=== PATIENT | male | born 1950 | race Caucasian/White ===

== ENCOUNTER 2023-03-24 16:00 | Emergency (ER) | payer MEDICARE, OTHER ==
[~2023-03-24] VITALS: Ht 172.7 cm; Wt 78.0 kg
[2023-03-24] MEDS ORDERED: AMOX-430 PO (17:08)
[2023-03-24 17:54] VITALS: BP 135/78; TEMP 98.2; O2SAT 97
== END 2023-03-24 17:55 | disposition home or self-care (01) ==
LOC: ER 16:00
DX: J01.10 Acute frontal sinusitis, unspecified (principal)
CPT/HCPCS: 70450; A4606; A4663

== ENCOUNTER 2023-05-12 14:03 | Emergency (ER) | payer MEDICARE, OTHER ==
[~2023-05-12] VITALS: Ht 172.7 cm; Wt 78.0 kg
[~2023-05-12 14:03] MED LIST: AMOX-430 PO
[2023-05-12 15:15] LABS: BASOPHILS # (AUTO) 0.1 K/UL (0.0-0.2); BASOPHILS % (AUTO) 2.9 % (0.0-2.0); EOSINOPHILS # (AUTO) 0.1 K/uL (0.0-0.7); EOSINOPHILS % (AUTO) 2.3 % (0.0-7.0); HEMATOCRIT 45.1 % (36.7-47.1); LYMPHOCYTES # (AUTO) 0.6 K/uL (0.8-4.8); LYMPHOCYTES % (AUTO) 13.5 % (20.5-51.5); MEAN CORPUSCULAR HEMOGLOBIN 30.8 uug (23.8-33.4); MEAN CORPUSCULAR HGB CONC 33 g/dL (32.5-36.3); MEAN CORPUSCULAR VOLUME 92.5 fL (73.0-96.2); MONOCYTES # (AUTO) 0.5 K/uL (0.1-1.30); MONOCYTES % (AUTO) 10.8 % (0.0-11.0); NEUTROPHILS # (AUTO) 3.2 K/uL (1.8-8.9); NEUTROPHILS % (AUTO) 70.5 % (38.5-71.5); PLATELET COUNT (AUTO) 202 K/uL (152-348); RED BLOOD CELL COUNT(AUTO) 4.88 MIL/uL (4.06-5.63); RED CELL DISTRIBUTION WIDTH 13.9 % (12.1-16.2); WHITE BLOOD COUNT (AUTO) 4.5 K/uL (3.6-10.2)
[2023-05-12 15:20] LABS: CARBON DIOXIDE 27 mmol/L (21-32); CHLORIDE 101 mmol/L (98-107); CREATININE 0.9 mg/dL (0.6-1.3); GLUCOSE 102 mg/dL (74-106); POTASSIUM 4.1 mmol/L (3.5-5.1); SODIUM SERUM 137 mmol/L (136-145); UREA NITROGEN, BLOOD 13 mg/dL (7-18)
[2023-05-12 15:21] LABS: DIFFERENTIAL COMMENT 1
[2023-05-12] MEDS ORDERED: AMLODIPINE 5 MG TABLET PO ONE (15:30)
[2023-05-12 15:33] LABS: ALANINE AMINOTRANSFERASE 26 U/L (16-63); ALBUMIN 3.7 g/dL (3.4-5.0); ALKALINE PHOSPHATASE 108 U/L (50-136); ASPARTATE AMINOTRANSFERASE 18 U/L (15-37); BILIRUBIN,DIRECT 0.1 mg/dL (0.0-0.2); BILIRUBIN,TOTAL 0.4 mg/dL (0.2-1.0); NT-PRO BNP 33 pg/mL (0-125); TOTAL PROTEIN, SERUM 7.8 g/dL (6.4-8.2)
[2023-05-12] MEDS ORDERED: AMLODIPINE 5 MG TABLET ONE (15:54)
[2023-05-12] MEDS ORDERED: VALS40TA4 PO (17:23)
[2023-05-12] MEDS ORDERED: VALS160T2 PO (17:23)
[2023-05-12] MEDS ORDERED: AMLO-212 PO (17:23)
[2023-05-12] MEDS ORDERED: FLUT1BLS6 IH (17:27)
[2023-05-12 17:35] VITALS: BP 186/94; O2SAT 100
== END 2023-05-12 17:35 | disposition home or self-care (01) ==
LOC: ER 14:03
DX: R07.89 Other chest pain (principal); I10 Essential (primary) hypertension; J44.9 Chronic obstructive pulmonary disease, unspecified; Z79.899 Other long term (current) drug therapy
CPT/HCPCS: 36415; 71045; 84484; 85025; 93005; A4606; A4663

== ENCOUNTER 2024-08-14 18:03 | Emergency (ER) | payer MEDICARE, OTHER ==
[~2024-08-14] VITALS: Ht 170.2 cm; Wt 83.5 kg
[~2024-08-14 18:03] MED LIST changes: +AMLO-212 PO; +FLUT1BLS6 IH; +VALS160T2 PO; +VALS40TA4 PO
[2024-08-14] MEDS ORDERED: ASPIRIN 81 MG TAB.CHEW ONE (18:53)
[2024-08-14] MEDS: ASPIRIN 81 MG TAB.CHEW PO ONE (18:53)
[2024-08-14 18:57] LABS: BASOPHILS # (AUTO) 0.1 K/UL (0.0-0.2); BASOPHILS % (AUTO) 0.5 % (0.0-2.0); EOSINOPHILS # (AUTO) 0.1 K/uL (0.0-0.7); EOSINOPHILS % (AUTO) 1.2 % (0.0-7.0); HEMATOCRIT 43.1 % (36.7-47.1); HEMOGLOBIN 14.6 g/dL (12.5-16.3); LYMPHOCYTES # (AUTO) 1.3 K/uL (0.8-4.8); LYMPHOCYTES % (AUTO) 11.4 % (20.5-51.5); MEAN CORPUSCULAR HEMOGLOBIN 31.2 uug (23.8-33.4); MEAN CORPUSCULAR HGB CONC 34 g/dL (32.5-36.3); MEAN CORPUSCULAR VOLUME 91.8 fL (73.0-96.2); MONOCYTES # (AUTO) 0.9 K/uL (0.1-1.30); MONOCYTES % (AUTO) 8.2 % (0.0-11.0); NEUTROPHILS % (AUTO) 78.7 % (38.5-71.5); PLATELET COUNT (AUTO) 245 K/uL (152-348); RED BLOOD CELL COUNT(AUTO) 4.69 MIL/uL (4.06-5.63); RED CELL DISTRIBUTION WIDTH 13.7 % (12.1-16.2); WHITE BLOOD COUNT (AUTO) 11.4 K/uL (3.6-10.2)
[2024-08-14 19:03] LABS: DIFFERENTIAL COMMENT 1
[2024-08-14 19:10] LABS: CALCIUM 8.9 mg/dL (8.5-10.1); CARBON DIOXIDE 24 mmol/L (21-32); CHLORIDE 105 mmol/L (98-107); GLUCOSE 118 mg/dL (74-106); POTASSIUM 3.8 mmol/L (3.5-5.1); SODIUM SERUM 141 mmol/L (136-145); UREA NITROGEN, BLOOD 14 mg/dL (7-18)
[2024-08-14] MEDS: levoFLOXacin 750 MG/D5W 150 ML PIGGYBACK IV ONE (19:15)
[2024-08-14] MEDS: GUAIFENESIN/CODEINE 5 ML LIQUID UDC PO ONE (19:15)
[2024-08-14 19:24] LABS: ALANINE AMINOTRANSFERASE 19 U/L (16-63); ALBUMIN 3.2 g/dL (3.4-5.0); ALKALINE PHOSPHATASE 109 U/L (50-136); ASPARTATE AMINOTRANSFERASE 10 U/L (15-37); BILIRUBIN,DIRECT 0.2 mg/dL (0.0-0.2); BILIRUBIN,TOTAL 0.4 mg/dL (0.2-1.0); NT-PRO BNP 102 pg/mL (0-125); TOTAL PROTEIN, SERUM 7.3 g/dL (6.4-8.2)
[2024-08-14] MEDS ORDERED: LEVO500T90 PO (19:26)
[2024-08-14] MEDS ORDERED: DEXT15SY3 PO (19:26)
[2024-08-14] MEDS ORDERED: levoFLOXacin 750MG/D5W 150 ML IV ONE (19:37)
[2024-08-14] MEDS ORDERED: GUAIFENESIN/CODEINE 5 ML LIQUID UDC ONE (19:38)
[2024-08-14] MEDS ORDERED: VALSARTAN 80 MG TABLET ONE (21:29)
[2024-08-14] MEDS: VALSARTAN 80 MG TABLET PO ONE (21:41)
[2024-08-14 21:42] VITALS: BP 164/80; TEMP 99; O2SAT 98
== END 2024-08-14 21:43 | disposition home or self-care (01) ==
LOC: ER 18:14
DX: R07.2 Precordial pain (principal); J18.1 Lobar pneumonia, unspecified organism; J00 Acute nasopharyngitis [common cold]; Z79.899 Other long term (current) drug therapy; Z20.822 Contact with and (suspected) exposure to COVID-19
CPT/HCPCS: 99285; 96365; 71045; 96366; 87426; 87804 ×2; 80076; 80048; 83880; 85025; 85379; 84484 ×2; 36415; 93005; J1956; A4606; A4663

== ENCOUNTER 2025-04-04 15:48 | Emergency (ER) | payer MEDICARE, OTHER ==
[~2025-04-04] VITALS: Ht 172.7 cm; Wt 76.7 kg
[~2025-04-04 15:48] MED LIST changes: +DEXT15SY3 PO; +LEVO500T90 PO
[2025-04-04 16:10] VITALS: BP 180/79
[2025-04-04] MEDS ORDERED: ASPI-866 PO (16:11)
[2025-04-04] MEDS ORDERED: VALS80TA2 PO (16:11)
[2025-04-04] MEDS ORDERED: ATOR40TA PO (16:11)
[2025-04-04 16:20] LABS: PLATELET COUNT (AUTO) 259 K/uL (152-348); RED BLOOD CELL COUNT(AUTO) 4.73 MIL/uL (4.06-5.63); RED CELL DISTRIBUTION WIDTH 14.1 % (12.1-16.2); WHITE BLOOD COUNT (AUTO) 6.9 K/uL (3.6-10.2)
[2025-04-04 16:33] LABS: ASPARTATE AMINOTRANSFERASE 13 U/L (15-37); CREATININE 0.9 mg/dL (0.6-1.3); SODIUM SERUM 148 mmol/L (136-145); TOTAL PROTEIN, SERUM 7.4 g/dL (6.4-8.2); UREA NITROGEN, BLOOD 18 mg/dL (7-18)
[2025-04-04] MEDS ORDERED: CILO100T PO (17:21)
[2025-04-04 17:44] VITALS: BP 171/70; O2SAT 97
== END 2025-04-04 17:44 | disposition home or self-care (01) ==
LOC: ER 15:48
DX: R07.89 Other chest pain (principal); I73.9 Peripheral vascular disease, unspecified; E11.51 Type 2 diabetes mellitus with diabetic peripheral angiopathy without gangrene; R06.02 Shortness of breath; E78.5 Hyperlipidemia, unspecified; F17.200 Nicotine dependence, unspecified, uncomplicated; I10 Essential (primary) hypertension; Z71.6 Tobacco abuse counseling; Z79.82 Long term (current) use of aspirin; Z79.899 Other long term (current) drug therapy
CPT/HCPCS: 36415; 71045; 84484; 85025; 85730; A4606; A4663